=== PATIENT | male | born 1965 | race Caucasian/White ===

== ENCOUNTER → 2018-04-22 | Outpatient (CLI) | payer OTHER ==
[~2018-04-22] MED LIST: ASPI81TA25 PO; ATOR-22 PO; BUPR300T43 PO; DILT240C74 PO; HYZ/10015 PO; LAMO200T PO
[2018-04-22 13:17] LABS: BASO % 0.4 %; BASO ABS # 0.02 K/uL (0-0.2); EOS % 1.8 %; EOS ABS # 0.09 K/uL (0-0.5); HEMOGLOBIN 13.2 g/dL (14.0-18.0); IG# 0.01 K/uL (0.00-0.02); LYMPH ABS # 1.48 K/uL (1.2-3.4); MEAN CORPUSCULAR HEMOGLOBIN 28.4 pg (25-34); MEAN PLATELET VOLUME 11.3 fL (7.4-10.4); MONO % 9.5 %; MONO ABS # 0.47 K/uL (0.11-0.59); NEUT % 58.1 %; NEUT ABS # 2.86 K/uL (1.4-6.5); PLATELET COUNT 230 K/uL (130-400); RED CELL DISTRIBUTION WIDTH CV 13.7 % (11.5-14.5); RED CELL DISTRIBUTION WIDTH SD 42.9 fL (36.4-46.3); WHITE BLOOD COUNT 4.93 K/uL (4.8-10.8)
[2018-04-22 13:51] LABS: T3 FREE 3.11 pg/ml (2.30-4.20)
[2018-04-22 14:06] LABS: HEMOGLOBIN A1C 5.6 % (4.5-5.6)
== END | disposition home or self-care (01) ==
LOC: C.LAB1850 11:17
PROVIDERS: ATTEND Psychiatry & Neurology Neurology
DX: E29.1 Testicular hypofunction (principal); F34.0 Cyclothymic disorder; F32.9 Major depressive disorder, single episode, unspecified